=== PATIENT | female | born 1985 | race African-American/Black ===

== ENCOUNTER 2021-03-26 01:22 | Emergency (ER) | payer OTHER ==
[~2021-03-26] VITALS: Ht 160 cm; Wt 68.0 kg
[2021-03-26 01:28] VITALS: BP_SYST 123
--- NOTE | 2021-03-26 01:30 | NUR ---
Patient to ER bed 7. Side rails up.
--- NOTE | 2021-03-26 01:31 | NUR ---
Patient BIB by friend from work. C/O right fingers pain, injury x today. Per patient reported, patient closed police car door and accident slams to her fingers. A/O,X4, right finger pain, bruise, pain rate 8.
--- NOTE | 2021-03-26 01:32 | NUR ---
ER at bedside examining patient.
[2021-03-26] MEDS ORDERED: KETOROLAC TROMETHAMINE 60 MG/2 ML VIAL IM ONE (01:45)
--- NOTE | 2021-03-26 01:49 | NUR ---
X-ray at bedside.
[2021-03-26] MEDS ORDERED: IBUP-1969 PO (02:21)
[2021-03-26 02:27] VITALS: BP_SYST 123
--- NOTE | 2021-03-26 02:27 | NUR ---
Patient given written and verbal discharge instructions and verbalizes understanding. ER MD discussed with patient the results and treatment provided. Patient in stable condition. ID arm band removed. Rx of Ibuprofen given. Patient educated on pain management and to follow up with PMD. Pain Scale 1/10. Opportunity for questions provided and answered. Medication side effect fact sheet provided.
== END 2021-03-26 02:27 | disposition home or self-care (01) ==
LOC: SED 01:22
DX: S63.601A Unspecified sprain of right thumb, initial encounter (principal); S67.21XA Crushing injury of right hand, initial encounter; Z79.899 Other long term (current) drug therapy; J45.909 Unspecified asthma, uncomplicated; W23.0XXA Caught, crushed, jammed, or pinched between moving objects, initial encounter; Y93.89 Activity, other specified; Y92.89 Other specified places as the place of occurrence of the external cause; Y99.0 Civilian activity done for income or pay
CPT/HCPCS: 29130; 73140; 96372; 99283; J1885